=== PATIENT | male | born 1980 | race Caucasian/White ===

== ENCOUNTER 2017-01-06 10:42 | Emergency (ER) | payer OTHER ==
[~2017-01-06] VITALS: Ht 175.3 cm; Wt 90.9 kg
[2017-01-06 10:46] VITALS: Ht 175.3 cm; Wt 90.9 kg
--- NOTE | 2017-01-06 11:25 | ERD ---
ER Documentation Chief Complaint Date/Time DATE: 01/06/17 TIME: 11:20 Chief Complaint SYNCOPAL EPISODE- UNDER THE CUSTODY HPI This 36-year-old male states he is otherwise healthy suffered a near syncopal episode today when he showed up to rest him in a dispensary. Stated that he felt very weak for a few seconds and sat down in a chair and kind of slid down the chair. He denies any trauma he states that he has no pain on feels much better. He is not sure that he ever lost consciousness. His he was possibly a emotional reaction it was going on. No chest pain, shortness of breath fevers or chills recently. He has no headache and no other neurological deficits. ROS All systems reviewed and are negative except as per history of present illness. Physical Exam Vitals Vital Signs Date Time Temp Pulse Resp B/P Pulse Ox O2 Delivery O2 Flow Rate FiO2 01/06/17 10:46 98.0 89 19 144/88 100 Physical Exam Const: [] No distress Head: Atraumatic Eyes: Normal Conjunctiva, EOMI, PERRLA ENT: Normal External Ears, Nose and Mouth. Neck: Full range of motion..~No JVD, no midline tenderness. Resp: Clear to auscultation bilaterally Cardio: Regular rate and rhythm, no murmurs Abd: Soft, non tender, non distended. Normal bowel sounds Skin: No petechiae or rashes Ext: No cyanosis, or edema Neur: Awake and alert and oriented 3, no focal deficits, cranial nerves II through XII intact, no cerebellar deficits, normal gait Psych: Normal Mood and Affect Procedures/MDM Patient with episode of near syncope just after he was told by police that he was being arrested. No chest pain or other signs of acute coronary syndrome. Nonischemic EKG. Asymptomatic. Discharge with primary care follow-up in the next 2 days as well as return precautions for any further episodes. EKG interpretation: Normal sinus rhythm, left axis deviation, no ST or T-wave changes concerning for acute ischemia. Normal intervals. Departure Diagnosis: Primary Impression: Near syncope Condition: Stable Patient Instructions: Near Syncope, Unknown Referrals: [facility] YOU HAVE RECEIVED A MEDICAL SCREENING EXAM AND THE RESULTS INDICATE THAT YOU DO NOT HAVE A CONDITION THAT REQUIRES URGENT TREATMENT IN THE EMERGENCY DEPARTMENT. FURTHER EVALUATION AND TREATMENT OF YOUR CONDITION CAN WAIT UNTIL YOU ARE SEEN IN YOUR DOCTORS OFFICE WITHIN THE NEXT 1-2 DAYS. IT IS YOUR RESPONSIBILITY TO MAKE AN APPOINTMENT FOR FOLOW-UP CARE. IF YOU HAVE A PRIMARY DOCTOR --you should call your primary doctor and schedule an appointment IF YOU DO NOT HAVE A PRIMARY DOCTOR YOU CAN CALL OUR PHYSICIAN REFERRAL HOTLINE AT IF YOU CAN NOT AFFORD TO SEE A PHYSICIAN YOU CAN CHOSE FROM THE FOLLOWING FORMERLY [facility], [facility] CLINICS [facility] [address] [facility] [address] [facility] [facility] [address] [facility] [address] [facility]. [facility] [address] [facility]. [facility]. [address] Additional Instructions: Call your primary care doctor TOMORROW for an appointment during the next 1-2 days.See the doctor sooner or return here if your condition worsens before your appointment time. JADEN GONZALEZ DO Jan 06, 2017 11:25
== END 2017-01-06 11:29 | disposition home or self-care (01) ==
LOC: E/R 10:42
DX: R55 Syncope and collapse (principal)
CPT/HCPCS: 93005